=== PATIENT | female | born 1955 | race Two or more races ===

== ENCOUNTER 2017-03-23 06:37 | Day surgery (SDC) | payer OTHER ==
[~2017-03-23 06:37] MED LIST: ASPIRIN EC81 MG PO; IBRERSANTAN PO; MULTIPLE VITAM1 EACH; OMEGA 3-6-9 11200 M1 PO; SYNTHROID50 MCG PO
== END 2017-03-23 19:55 | disposition home or self-care (01) ==
LOC: CIR.AMB 06:37
DX: C50.512 Malignant neoplasm of lower-outer quadrant of left female breast (principal); D05.11 Intraductal carcinoma in situ of right breast

== ENCOUNTER 2017-05-09 08:19 | Outpatient (CLI) | payer OTHER | END 2017-05-09 11:10 | disposition home or self-care (01) | LOC: SONOGRAMA 08:19 | DX: N60.11 Diffuse cystic mastopathy of right breast (principal); N60.12 Diffuse cystic mastopathy of left breast; C50.411 Malignant neoplasm of upper-outer quadrant of right female breast ==

== ENCOUNTER 2019-01-02 11:51 | Outpatient (CLI) | payer OTHER | END 2019-01-02 12:08 | disposition home or self-care (01) | LOC: SONOGRAMA 11:51 | DX: E04.1 Nontoxic single thyroid nodule (principal) ==

== ENCOUNTER 2019-03-28 09:38 | Outpatient (CLI) | payer OTHER | END 2019-03-28 09:40 | disposition home or self-care (01) | LOC: RAD 09:38 | DX: K21.9 Gastro-esophageal reflux disease without esophagitis (principal); R05 Cough ==

== ENCOUNTER 2019-04-11 07:00 | Day surgery (SDC) | payer OTHER | END 2019-04-11 19:40 | disposition home or self-care (01) | LOC: CIR.AMB 07:00 | DX: D24.2 Benign neoplasm of left breast (principal) ==

== ENCOUNTER 2020-07-23 13:46 | Outpatient (CLI) | payer OTHER | END 2020-07-23 13:59 | disposition home or self-care (01) | LOC: SONOGRAMA 13:46 | PROVIDERS: ATTEND Internal Medicine Endocrinology, Diabetes & Metabolism | DX: E04.2 Nontoxic multinodular goiter (principal); D25.9 Leiomyoma of uterus, unspecified; E03.8 Other specified hypothyroidism; N95.2 Postmenopausal atrophic vaginitis; N60.11 Diffuse cystic mastopathy of right breast; N60.12 Diffuse cystic mastopathy of left breast; M89.8X9 Other specified disorders of bone, unspecified site; M85.88 Other specified disorders of bone density and structure, other site; M85.89 Other specified disorders of bone density and structure, multiple sites ==